=== PATIENT | female | born 1980 | race Caucasian/White ===

== ENCOUNTER 2021-02-26 08:33 | Day surgery (SDC) | payer MEDICAID ==
[~2021-02-26] VITALS: Ht 157.5 cm; Wt 122.7 kg
[2021-02-26 08:55] VITALS: BP 132/84
[2021-02-26] MEDS ORDERED: fentaNYL/PF 50MCG/1 ML 2ML syringe ONE (09:05)
[2021-02-26] MEDS ORDERED: MIDAZolam 1 MG/ML 5ML VIAL ONE ×2 (09:05)
[2021-02-26] MEDS ORDERED: LIDOcaine Viscous 15ml cup ONE (09:05)
[2021-02-26] MEDS ORDERED: METF-436 PO (09:23)
[2021-02-26] MEDS ORDERED: LISI10TA27 PO (09:23)
[2021-02-26 10:07] VITALS: BP 132/84
[2021-02-26 10:17] VITALS: BP 137/78
[2021-02-26 10:27] VITALS: BP 156/72
[2021-02-26 10:37] VITALS: BP 136/85
== END 2021-02-26 11:00 | disposition home or self-care (01) ==
LOC: GI LAB 08:33
PROVIDERS: ATTEND Internal Medicine Gastroenterology
DX: K92.1 Melena (principal); R10.9 Unspecified abdominal pain; K62.5 Hemorrhage of anus and rectum; K29.50 Unspecified chronic gastritis without bleeding; K64.8 Other hemorrhoids
CPT/HCPCS: 43239; 45378; 99152; 99153; J2250; J3010; J7040; A4620